=== PATIENT | female | born 1960 | race Caucasian/White ===

== ENCOUNTER 2021-02-04 16:46 | Emergency (ER) | payer OTHER ==
[~2021-02-04] VITALS: Ht 162.6 cm; Wt 121.6 kg
[~2021-02-04 16:46] MED LIST: ALBU90OI61 INH; ALLER-TEC D 5-1 EACH PO; ATOR80 PO; Aspir 8181 MG PO; DOXE10 PO; LISI5 PO; LOSA25 PO; NITR.4SL MM; OMEP40CA12 PO; PANT40 PO; TRAZ50 PO; lisinopril 10 mg tab
[2021-02-04 17:21] LABS: BASOPHILS ABSOLUTE AUTO 0.04 K/mm3 (0.00-0.23); BASOPHILS PERCENT AUTO 1 % (0-2); EOSINOPHILS ABSOLUTE AUTO 0.03 K/mm3 (0.00-0.68); EOSINOPHILS PERCENT AUTO 0 % (0-6); Hematocrit 41.6 % (33.0-51.0); IMMATURE GRAN ABSOLUTE AUTO 0.04 K/mm3 (0.00-0.10); IMMATURE GRAN PERCENT AUTO 1 % (0-1); LYMPHOCYTES ABSOLUTE AUTO 1.11 K/mm3 (0.84-5.20); LYMPHOCYTES PERCENT AUTO 13 % (21-46); MONOCYTES ABSOLUTE AUTO 0.62 K/mm3 (0.16-1.47); MONOCYTES PERCENT AUTO 7 % (4-13); Mean Corpuscular HGB 29.2 pg (26.0-34.0); Mean Corpuscular HGB Conc 33.7 g/dL (31.5-36.5); Mean Corpuscular Volume 87 fL (80-100); Mean Platelet Volume 9.9 fL (9.1-12.4); NEUTROPHILS ABSOLUTE AUTO 6.99 K/mm3 (1.96-9.15); NEUTROPHILS PERCENT AUTO 79 % (41-73); Platelet Count 179 K/mm3 (150-400); RDW Coefficient Variation 13.3 % (11.7-14.2); RDW Standard Deviation 42.5 fL (35.1-46.3); Red Blood Cell Count 4.79 M/mm3 (3.80-5.20); White Blood Cell Count 8.83 K/mm3 (4.00-11.30)
[2021-02-04 17:56] LABS: Anion Gap 4 mmol/L (6-16); Blood Urea Nitrogen 16 mg/dL (8-24); CO2, Blood 27 mmol/L (21-32); Chloride, Blood 106 mmol/L (98-108); Glucose, Blood 92 mg/dL (70-99); Potassium, Blood 4.4 mmol/L (3.5-5.5); Sodium, Blood 137 mmol/L (136-145)
[2021-02-04 17:57] LABS: Alanine Aminotransfer (ALT/SGP 34 U/L (12-78); Albumin/Globulin Ratio 1.1 (0.8-1.8); Alk Phos 108 U/L (50-136); Aspartate Aminotrans (AST/SGOT 33 U/L (12-37); Bilirubin, Total 0.6 mg/dL (0.1-1.0); Bun/Creatinine Ratio 22.8 (12.0-20.0); Calcium, Blood 9.3 mg/dL (8.5-10.1); Globulin, Blood 3.5 g/dL (2.2-4.0); Glomerular Filtration Rate >60 (60-); Total Protein, Blood 7.5 g/dL (6.4-8.2)
== END 2021-02-04 21:20 | disposition home or self-care (01) ==
LOC: ER 16:46
PROVIDERS: Physician Assistant
DX: R10.9 Unspecified abdominal pain (principal); I10 Essential (primary) hypertension; E78.5 Hyperlipidemia, unspecified; K21.9 Gastro-esophageal reflux disease without esophagitis; Z79.82 Long term (current) use of aspirin; Z79.899 Other long term (current) drug therapy; Z88.4 Allergy status to anesthetic agent; Z88.7 Allergy status to serum and vaccine; Z87.891 Personal history of nicotine dependence
CPT/HCPCS: 36415; 76705; 80053; 83690; 85025; 99284-25

== ENCOUNTER 2023-06-22 01:45 | Emergency (ER) | payer OTHER ==
[~2023-06-22] VITALS: Ht 162.6 cm; Wt 99.8 kg
[2023-06-22 02:20] LABS: BASOPHILS ABSOLUTE AUTO 0.04 K/mm3 (0.00-0.23); BASOPHILS PERCENT AUTO 1 % (0-2); EOSINOPHILS ABSOLUTE AUTO 0.09 K/mm3 (0.00-0.68); EOSINOPHILS PERCENT AUTO 1 % (0-6); Hematocrit 40.6 % (33.0-51.0); Hemoglobin 13.5 g/dL (11.5-16.0); IMMATURE GRAN ABSOLUTE AUTO 0.04 K/mm3 (0.00-0.10); IMMATURE GRAN PERCENT AUTO 1 % (0-1); LYMPHOCYTES PERCENT AUTO 17 % (21-46); MONOCYTES ABSOLUTE AUTO 0.67 K/mm3 (0.16-1.47); MONOCYTES PERCENT AUTO 8 % (4-13); Mean Corpuscular HGB 29.3 pg (26.0-34.0); Mean Corpuscular HGB Conc 33.3 g/dL (31.5-36.5); Mean Corpuscular Volume 88 fL (80-100); Mean Platelet Volume 10.2 fL (9.1-12.4); NEUTROPHILS ABSOLUTE AUTO 5.96 K/mm3 (1.96-9.15); NEUTROPHILS PERCENT AUTO 73 % (41-73); Platelet Count 163 K/mm3 (150-400); RDW Coefficient Variation 13.7 % (11.7-14.2); RDW Standard Deviation 43.8 fL (35.1-46.3)
[2023-06-22] MEDS ORDERED: NEBIVOLOL HCL5 MG PO (02:29)
[2023-06-22] MEDS ORDERED: AMLODIPINE BESYL5 MG PO (02:29)
[2023-06-22] MEDS ORDERED: LIPITOR80 MG PO (02:32)
[2023-06-22] MEDS ORDERED: PAXIL2010 PO (02:32)
[2023-06-22 02:49] LABS: Albumin, Blood 3.2 g/dL (3.4-5.0); Albumin/Globulin Ratio 0.9 (0.8-1.8); Bilirubin, Total 0.3 mg/dL (0.1-1.0); Bun/Creatinine Ratio 16.5 (12.0-20.0); Calcium, Blood 8.4 mg/dL (8.5-10.1); Creatinine, Blood 0.79 mg/dL (0.40-1.00); Globulin, Blood 3.4 g/dL (2.2-4.0); Potassium, Blood 4.3 mmol/L (3.5-5.5); Total Protein, Blood 6.6 g/dL (6.4-8.2)
[2023-06-22 03:07] LABS: Base Excess Venous 3.3 mmol/L; Bicarbonate Venous 26.4 mmol/L (24.0-30.0); PCO2 Venous 51.4 mmHg (38-42); pH Blood Venous 7.36 (7.34-7.37)
[2023-06-22] MEDS ORDERED: FURO20 PO (05:52)
[2023-06-22] MEDS ORDERED: ALBU90OI INH (05:52)
[2023-06-22] MEDS ORDERED: POTA10T PO (05:52)
[2023-06-22 06:28] VITALS: BP 151/98
== END 2023-06-22 06:28 | disposition home or self-care (01) ==
LOC: ER 01:45
PROVIDERS: Student in an Organized Health Care Education/Training Program
DX: I11.0 Hypertensive heart disease with heart failure (principal); I50.9 Heart failure, unspecified; E78.5 Hyperlipidemia, unspecified; K21.9 Gastro-esophageal reflux disease without esophagitis; Z88.7 Allergy status to serum and vaccine; Z88.5 Allergy status to narcotic agent; Z88.8 Allergy status to other drugs, medicaments and biological substances; Z79.82 Long term (current) use of aspirin; Z79.899 Other long term (current) drug therapy; Z87.891 Personal history of nicotine dependence
CPT/HCPCS: 71046; 80053; 82803; 83880; 84484; 85025; 85379; 93005; 93010; 94640; 94664; 96374; 99284-25; A9270; J1940

== ENCOUNTER 2024-02-22 07:40 | Observation (INO) | payer OTHER ==
[~2024-02-22] VITALS: Ht 162.6 cm; Wt 122.9 kg
[~2024-02-22 07:40] MED LIST changes: +ALBU90OI INH; +AMLODIPINE BESYL5 MG PO; +FURO20 PO; +LIPITOR80 MG PO; +NEBIVOLOL HCL5 MG PO; +PAXIL2010 PO; +POTA10T PO
[2024-02-22] MEDS ORDERED: Nitroglycerin 1 INCH/GM PKT TOP ONE (08:15)
[2024-02-22] MEDS ORDERED: Aspirin 325 MG Tab PO ONE (08:15)
[2024-02-22 09:14] LABS: BASOPHILS ABSOLUTE AUTO 0.05 K/mm3 (0.00-0.23); BASOPHILS PERCENT AUTO 1 % (0-2); EOSINOPHILS ABSOLUTE AUTO 0.03 K/mm3 (0.00-0.68); EOSINOPHILS PERCENT AUTO 0 % (0-6); Hematocrit 43.6 % (33.0-51.0); Hemoglobin 14.9 g/dL (11.5-16.0); IMMATURE GRAN ABSOLUTE AUTO 0.02 K/mm3 (0.00-0.10); IMMATURE GRAN PERCENT AUTO 0 % (0-1); LYMPHOCYTES ABSOLUTE AUTO 1.17 K/mm3 (0.84-5.20); LYMPHOCYTES PERCENT AUTO 17 % (21-46); MONOCYTES ABSOLUTE AUTO 0.59 K/mm3 (0.16-1.47); MONOCYTES PERCENT AUTO 8 % (4-13); Mean Corpuscular HGB 29.4 pg (26.0-34.0); Mean Corpuscular HGB Conc 34.2 g/dL (31.5-36.5); Mean Corpuscular Volume 86 fL (80-100); Mean Platelet Volume 10.4 fL (9.1-12.4); NEUTROPHILS ABSOLUTE AUTO 5.23 K/mm3 (1.96-9.15); NEUTROPHILS PERCENT AUTO 74 % (41-73); Platelet Count 169 K/mm3 (150-400); RDW Coefficient Variation 13.2 % (11.7-14.2); Red Blood Cell Count 5.06 M/mm3 (3.80-5.20); White Blood Cell Count 7.09 K/mm3 (4.00-11.30)
[2024-02-22 09:25] LABS: Albumin, Blood 3.8 g/dL (3.4-5.0); Albumin/Globulin Ratio 1.2 (0.8-1.8); Bilirubin, Total 0.5 mg/dL (0.1-1.0); Bun/Creatinine Ratio 14.6 (12.0-20.0); Calcium, Blood 9.1 mg/dL (8.5-10.1); Creatinine, Blood 0.89 mg/dL (0.40-1.00); Globulin, Blood 3.3 g/dL (2.2-4.0); Potassium, Blood 3.7 mmol/L (3.5-5.5); Total Protein, Blood 7.1 g/dL (6.4-8.2)
[2024-02-22] MEDS ORDERED: TRAZ50 PO (10:15)
[2024-02-22] MEDS ORDERED: VERA120 PO (10:16)
[2024-02-22] MEDS ORDERED: Ondansetron HCl 2 MG / ML 2ML Vial IV PRN (10:30)
[2024-02-22] MEDS ORDERED: Verapamil HCL 120 MG TABCR PO SCH (10:30)
[2024-02-22] MEDS ORDERED: Acetaminophen 325 MG TABLET PO PRN (10:30)
[2024-02-22] MEDS ORDERED: Carvedilol 3.125 MG Tab PO SCH (10:45)
[2024-02-22 11:00] VITALS: BP 134/81
[2024-02-22 13:08] VITALS: BP 147/87
[2024-02-22 15:51] VITALS: BP 137/77
--- NOTE | 2024-02-22 17:49 | NUR ---
"Spiritual Care Visit Attempted | Pt. Request Pt. is graceful but does not recall requesting spiritual care. Pt. verbalized gratitude for ths spiritual care visit but declined spiritual care."
--- NOTE | 2024-02-22 18:48 | NUR ---
ASSUMED CARE FROM ER. TRANSFERRED TO BED FROM ER [facility] WITHOUT DIFFICULTY. REPORTS RIGHT SIDE CP, SPOKE WITH DR. DING REGARDING IT. CARDIAC CONSULT ORDERED. DENIES SOB OR RADIATING PAIN. VSS, TO BE NPO AFTER MIDNIGHT TONIGHT FOR ANGIO TOMORROW. INDEPENDANT IN ROOM. PLEASANT AND COOPERATIVE WITH CARE, WILL CONTINUE TO MONITOR AND TREAT UNTIL CHANGE OF SHIFT.
--- NOTE | 2024-02-22 18:50 | NUR ---
HOLDING COREG UNTIL 8 HOURS FROM LAST DOSE PER PHARMACY.
[2024-02-22 19:57] VITALS: BP 166/75
[2024-02-22] MEDS ORDERED: Atorvastatin 40 MG Tab PO SCH (21:00)
[2024-02-22] MEDS ORDERED: TraZODone HCl 50 MG Tab PO SCH (21:00)
--- NOTE | 2024-02-22 22:06 | NUR ---
PT IS ALERT AND ORIENTED X 4, COOPERATIVE WITH CARE AND ABLE TO MAKE NEEDS KNOWN. SHE IS ON RA AND MAINTAINING 02 SATURATION ABOVE 95%, SOB W/EXERTION. HR 60'S-70'S & BP STABLE BUT ELEVATED, PT MEDICATED PER EMAR. PT HAS DENIED CP SINCE BEGINNING OF SHIFT. SHE IS COMPLAINING OF HEARTBURN, NOTIFIED, ORDERS PLACED, AND PT MEDICATED PER EMAR. PT IS CONTINENT OF BLADDER AND BOWELS, AMBULATES TO RESTROOM AND TOLERATES WELL. PT HAS ANGIO SCHEDULED FOR 02/23/24, NPO AT MIDNIGHT. PT RESTING IN BED AND WATCHING TV. CALL LIGHT WITHIN REACH.
[2024-02-22] MEDS ORDERED: Calcium Carbonate 500 MG Tab Chew PO PRN (22:20)
[2024-02-23 00:40] VITALS: BP 174/82
[2024-02-23 02:26] LABS: Hematocrit 40.7 % (33.0-51.0); Hemoglobin 13.9 g/dL (11.5-16.0); Mean Corpuscular HGB 29.8 pg (26.0-34.0); Mean Corpuscular HGB Conc 34.2 g/dL (31.5-36.5); Mean Corpuscular Volume 87 fL (80-100); Platelet Count 155 K/mm3 (150-400); RDW Coefficient Variation 13.3 % (11.7-14.2); RDW Standard Deviation 42.2 fL (35.1-46.3); Red Blood Cell Count 4.67 M/mm3 (3.80-5.20); White Blood Cell Count 6.09 K/mm3 (4.00-11.30)
[2024-02-23 03:03] LABS: Bun/Creatinine Ratio 12.9 (12.0-20.0); Calcium, Blood 10.2 mg/dL (8.5-10.1); Creatinine, Blood 0.85 mg/dL (0.40-1.00); Potassium, Blood 3.8 mmol/L (3.5-5.5)
--- NOTE | 2024-02-23 05:11 | NUR ---
NO ACUTE CHANGES, SEE PREVIOUS NOTE. PT HAS BEEN NPO SINCE MIDNIGHT. CALL LIGHT WITHIN REACH.
[2024-02-23 06:08] VITALS: BP 185/89
--- NOTE | 2024-02-23 06:24 | NUR ---
BP ELEVATED, MD NOTIFIED, ORDERS PLACED, PT MEDICATED PER ORDERS.
[2024-02-23] MEDS ORDERED: Losartan Potassium 25 MG Tab PO SCH (07:00)
[2024-02-23] MEDS ORDERED: NS 250 ML IV ONE (07:23)
[2024-02-23] MEDS ORDERED: NS 1,000 ML IV ONE ×2 (07:23→07:24)
[2024-02-23] MEDS ORDERED: Heparin Sodium 1000 Units/ML 10ML MDV ONE (07:23)
[2024-02-23] MEDS ORDERED: Verapamil HCL 2.5 MG/ML 2ML Injection ONE (07:23)
[2024-02-23] MEDS ORDERED: Nitroglycerin 2 MG/20 ML BTL ONE (07:24)
[2024-02-23] MEDS ORDERED: Midazolam HCl 1MG / ML 2ML Vial ONE (07:37)
[2024-02-23] MEDS ORDERED: FentaNYL Citrate 50 MCG/ML 2 ML Injection ONE (07:37)
[2024-02-23] MEDS ORDERED: PARoxetine HCl 20 MG Tab PO SCH (09:00)
[2024-02-23] MEDS ORDERED: Enoxaparin 40 MG/0.4 ML SYR SC SCH ×2 (09:00→21:00)
[2024-02-23] MEDS ORDERED: Aspirin 81 MG Chew PO SCH (09:00)
[2024-02-23 09:30] VITALS: BP 156/105
[2024-02-23 11:00] VITALS: BP 131/97
[2024-02-23] MEDS ORDERED: Omeprazole 20 MG CapCR PO ONE (11:40)
[2024-02-23 15:56] VITALS: BP 179/73
[2024-02-23] MEDS ORDERED: FURO20 PO (16:59)
[2024-02-23] MEDS ORDERED: ASPI325 PO (17:00)
[2024-02-23] MEDS ORDERED: CARV3.125 PO (17:01)
[2024-02-23] MEDS ORDERED: Calcium Carbon500 MG PO (17:01)
[2024-02-23] MEDS ORDERED: OMEP20ER PO (17:02)
[2024-02-23] MEDS ORDERED: LOSA25 PO (17:02)
--- NOTE | 2024-02-23 17:38 | NUR ---
SHIFT SUMMARY/DISCHARGE NOTES: ASSUMED CARE W PRIMARY RN AT 0700. PT A/Ox4. VSS, BP ELEVATED, MEDICATED PER EMAR. SINUS 80s ON TELE. RESP CLEAR ON AUSCULTATION. PT INDEPENDENT, ABLE TO MAKE NEEDS KNOWN. IV ON (L) AC, 20G, NO SWELLING, REDNESS, EDEMA. PT DENIES PN ON SITE. PT HAD ANGIOGRAM TODAY. NO ORDERS AT THIS TIME. PT HAS TR BAND ON R RADIAL, APPEARS C/D/I. NO SWELLING, REDNESS, PT DENIES PN ON SITE. NO ACUTE CHANGES, PT DENIES CHEST PN/PRESSURE. PT IS D/C TO HOME AT 1735 WITH ALL THEIR BELONGINGS. D/C TEACHINGS AND INSTRUCTIONS WERE REVIEWED AND PT HAD NO FURTHER QUESTIONS OR CONCERNS. 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 PT WAS AMBULATORY, GAIT STEADY, LEFT THE HOSPITAL IN THE CARE OF HER . NO FURTHER NEEDS IDENTIFIED.
[2024-02-24] MEDS ORDERED: Omeprazole 20 MG CapCR PO SCH (06:00)
== END 2024-02-23 17:35 | disposition home or self-care (01) ==
LOC: ER 07:40 → PCU 07:41 → ICUE 07:41 → PCU 11:28
PROVIDERS: Emergency Medicine; ADMIT Internal Medicine
DX: I25.118 Atherosclerotic heart disease of native coronary artery with other forms of angina pectoris (principal); E66.01 Morbid (severe) obesity due to excess calories; K21.9 Gastro-esophageal reflux disease without esophagitis; I10 Essential (primary) hypertension; E78.5 Hyperlipidemia, unspecified; I42.1 Obstructive hypertrophic cardiomyopathy; G47.30 Sleep apnea, unspecified; Z79.82 Long term (current) use of aspirin; Z79.899 Other long term (current) drug therapy; I27.20 Pulmonary hypertension, unspecified; Z87.891 Personal history of nicotine dependence
CPT/HCPCS: 36415; 71045; 76937; 80048; 80053; 84484; 85025; 85027; 93005; 93010; 93306; 93458; 96372; 99152; 99153; 99285-25; A9270; C1769; C1887; C1894; G0378; J1644; J1650; J2250; J3010; J7030; J7050; Q9967

== ENCOUNTER → 2024-06-13 | Outpatient (CLI) | payer OTHER ==
[~2024-06-13] MED LIST changes: +ASPI325 PO; +CARV3.125 PO; +Calcium Carbon500 MG PO; +OMEP20ER PO; +VERA120 PO
[2024-06-13 11:32] LABS: BASOPHILS ABSOLUTE AUTO 0.03 K/mm3 (0.00-0.23); BASOPHILS PERCENT AUTO 0 % (0-2); EOSINOPHILS ABSOLUTE AUTO 0.06 K/mm3 (0.00-0.68); EOSINOPHILS PERCENT AUTO 1 % (0-6); Hemoglobin 13.4 g/dL (11.5-16.0); IMMATURE GRAN ABSOLUTE AUTO 0.02 K/mm3 (0.00-0.10); IMMATURE GRAN PERCENT AUTO 0 % (0-1); LYMPHOCYTES ABSOLUTE AUTO 0.83 K/mm3 (0.84-5.20); LYMPHOCYTES PERCENT AUTO 12 % (21-46); MONOCYTES ABSOLUTE AUTO 0.48 K/mm3 (0.16-1.47); MONOCYTES PERCENT AUTO 7 % (4-13); Mean Corpuscular HGB 28.3 pg (26.0-34.0); Mean Corpuscular HGB Conc 31.9 g/dL (31.5-36.5); Mean Corpuscular Volume 89 fL (80-100); Mean Platelet Volume 9.9 fL (9.1-12.4); NEUTROPHILS ABSOLUTE AUTO 5.45 K/mm3 (1.96-9.15); NEUTROPHILS PERCENT AUTO 79 % (41-73); Platelet Count 152 K/mm3 (150-400); RDW Coefficient Variation 13.6 % (11.7-14.2); RDW Standard Deviation 43.9 fL (35.1-46.3); Red Blood Cell Count 4.74 M/mm3 (3.80-5.20); White Blood Cell Count 6.87 K/mm3 (4.00-11.30)
[2024-06-13 11:46] LABS: Albumin, Blood 3.5 g/dL (3.4-5.0); Albumin/Globulin Ratio 0.9 (0.8-1.8); Bilirubin, Total 0.4 mg/dL (0.1-1.0); Bun/Creatinine Ratio 16.8 (12.0-20.0); Calcium, Blood 9.1 mg/dL (8.5-10.1); Creatinine, Blood 0.95 mg/dL (0.40-1.00); Globulin, Blood 3.7 g/dL (2.2-4.0); Potassium, Blood 4.5 mmol/L (3.5-5.5); Total Protein, Blood 7.2 g/dL (6.4-8.2)
== END ==
LOC: LAB SHORT 11:27 → LAB 11:27
PROVIDERS: Physician Assistant
DX: R10.9 Unspecified abdominal pain (principal)
CPT/HCPCS: 80053; 83690; 85025

== ENCOUNTER 2025-01-09 09:19 | Inpatient (IN) | payer OTHER ==
[~2025-01-09] VITALS: Ht 162.6 cm; Wt 129.9 kg
[2025-01-09] MEDS ORDERED: Albuterol 2.5 MG/3 ML VIAL INH ONE (09:40)
[2025-01-09] MEDS ORDERED: CefTRIAXone Sodium 2,000 MG in NS 100 ML IV ONE (10:05)
[2025-01-09] MEDS ORDERED: Azithromycin 500 MG in NS 250 ML IV ONE (10:05)
[2025-01-09] MEDS ORDERED: Aspirin 325 MG Tab PO ONE (10:05)
[2025-01-09 11:08] LABS: Anti-Xa UFH, PHA Monitoring <0.10 IU/mL; International Normalized Ratio 1.08; Prothrombin Time Results 11.5 Sec (9.7-11.5)
[2025-01-09] MEDS ORDERED: Heparin Sodium,Porcine/0.5 NS 500 ML IV SCH (11:30)
[2025-01-09] MEDS ORDERED: Carvedilol 3.125 MG Tab PO SCH (12:00)
[2025-01-09] MEDS ORDERED: Aspirin 325 MG Tab PO SCH (12:00)
[2025-01-09] MEDS ORDERED: Atorvastatin 40 MG Tab PO SCH (12:00)
[2025-01-09] MEDS ORDERED: Clopidogrel Bisulfate 75 MG Tab PO SCH (13:00)
[2025-01-09] MEDS ORDERED: Furosemide 10 MG/ML 4ML Vial IV SCH (13:00)
[2025-01-09] MEDS ORDERED: Verapamil HCL 120 MG TABCR PO SCH (13:00)
[2025-01-09] MEDS ORDERED: Losartan Potassium 25 MG Tab PO SCH (13:00)
[2025-01-09 14:14] LABS: Influenza A, PCR NEGATIVE (NEGATIVE); Influenza B, PCR NEGATIVE (NEGATIVE); Resp Syncytial Virus, PCR NEGATIVE (NEGATIVE); SARS-Cov-2 (COVID-19) PCR, MMC NEGATIVE (NEGATIVE)
[2025-01-09 14:46] LABS: Base Excess Venous 12.2 mmol/L; Bicarbonate Venous 33.3 mmol/L (24.0-30.0); pH Blood Venous 7.38 (7.34-7.37)
[2025-01-09 14:47] LABS: PCO2 Venous 62.7 mmHg (38-42)
[2025-01-09 15:04] VITALS: BP 148/88
--- NOTE | 2025-01-09 15:52 | NUR ---
ARRIVAL TO UNIT REPORT RECIEVED FROM ED NURSE AT 1438. PT ARRIVED TO PCU AT 1500 VIA GURNEY AND ON 2L NC. PT ABLE TO TRNAFER FROM GURNEY TO PCU ON HER OWN, TOLERATED WELL. LUNGS COARSE. PT DENIES SOB AT TIME OF ARRIVAL. PT ORIENTED TO ROOM AND ABLE TO ANSWER HEALTH HISTORY APPROPIATELY. HEP GTT RUNNING PER ORDER. PT DENIES CHEST PAIN/PRESSURE AT THIS TIME.
[2025-01-09 16:00] VITALS: BP 119/71
[2025-01-09] MEDS ORDERED: GuaiFENesin 600 MG TabCR PO SCH (17:00)
[2025-01-09] MEDS ORDERED: Ampicillin Sod/Sulbactam Sod 1.5 GM in NS 100 ML IV SCH (18:00)
[2025-01-09] MEDS ORDERED: Ampicillin Sod/Sulbactam Sod 3 GM in NS 100 ML IV SCH (18:00)
--- NOTE | 2025-01-09 18:30 | NUR ---
SHIFT SUMMARY PT A/OX 4 AND COOPERATIVE OF CARE. PT ABLE TO EXPRESS NEEDS AND CALLS APPROPIATE. PT ON 2L NC WITH SATS IN THE 90'S, NO REPORT OF SOB SINCE ARRIVING TO PCU. PT VSS SINCE ARRIVING TO UNIT. PT WITH HEP GTT RUNNING PER ORDER. PT SBA ASSIST WHILE UP IN ROOM, TOLERATES WELL.
[2025-01-09 19:21] VITALS: BP 99/66
[2025-01-09] MEDS ORDERED: Lactobacil 2-S.Thermo-Bifido 1 1 Cap PO SCH (21:00)
[2025-01-09 23:36] VITALS: BP 126/70
[2025-01-09] MEDS ORDERED: Acetaminophen 325 MG TABLET PO PRN (23:45)
[2025-01-10 00:17] LABS: BASOPHILS ABSOLUTE AUTO 0.04 K/mm3 (0.00-0.23); BASOPHILS PERCENT AUTO 0 % (0-2); EOSINOPHILS ABSOLUTE AUTO 0.02 K/mm3 (0.00-0.68); EOSINOPHILS PERCENT AUTO 0 % (0-6); Hematocrit 41.4 % (33.0-51.0); Hemoglobin 12.9 g/dL (11.5-16.0); IMMATURE GRAN ABSOLUTE AUTO 0.02 K/mm3 (0.00-0.10); IMMATURE GRAN PERCENT AUTO 0 % (0-1); LYMPHOCYTES ABSOLUTE AUTO 0.85 K/mm3 (0.84-5.20); LYMPHOCYTES PERCENT AUTO 9 % (21-46); MONOCYTES ABSOLUTE AUTO 1.62 K/mm3 (0.16-1.47); MONOCYTES PERCENT AUTO 18 % (4-13); Mean Corpuscular HGB 28.7 pg (26.0-34.0); Mean Corpuscular HGB Conc 31.2 g/dL (31.5-36.5); Mean Corpuscular Volume 92 fL (80-100); Mean Platelet Volume 10.1 fL (9.1-12.4); NEUTROPHILS PERCENT AUTO 73 % (41-73); NRBC ABSOLUTE 0.03 K/mm3 (0.00-0.02); NRBC Auto 0.3 /100 WBC (0.0-0.2); Platelet Count 194 K/mm3 (150-400); RDW Coefficient Variation 13.7 % (11.7-14.2); RDW Standard Deviation 46.5 fL (35.1-46.3); Red Blood Cell Count 4.49 M/mm3 (3.80-5.20); White Blood Cell Count 9.25 K/mm3 (4.00-11.30)
[2025-01-10 00:38] LABS: Albumin, Blood 2.6 g/dL (3.4-5.0); Albumin/Globulin Ratio 0.6 (0.8-1.8); Bilirubin, Total 0.4 mg/dL (0.1-1.0); Bun/Creatinine Ratio 23.2 (12.0-20.0); Calcium, Blood 9.3 mg/dL (8.5-10.1); Creatinine, Blood 0.99 mg/dL (0.40-1.00); Globulin, Blood 4.1 g/dL (2.2-4.0); Potassium, Blood 4.1 mmol/L (3.5-5.5); Total Protein, Blood 6.7 g/dL (6.4-8.2)
[2025-01-10] MEDS ORDERED: Dose Adjust by Pharmacy XX STA (00:49)
[2025-01-10 03:54] VITALS: BP 147/86
--- NOTE | 2025-01-10 05:44 | NUR ---
NOC SUMMARY- PT STILL REQUIRES O2. PT IS A MOUTH BREATHER WHEN SLEEPING, A OXYMASK WAS PLACED ON PT. PT HAS PERIODS OF APNEA WHILE SLEEPING. PT DENIES HX OF USING CPAP OR SLEEP STUDY. PT CONTINUES TO COUGH UP BROWN THICK SPUTUM. PT HAS HAD HARD TIME SLEEPING DUE TO APNEA WAKING HER UP FREQUENTLY. PT HAS BEEN VOIDING AND TOLERATING PO. PT CURRENTLY RESTING AND IN NO DISTRESS. CALL LIGHT IN REACH.
[2025-01-10] MEDS ORDERED: Omeprazole 20 MG CapCR PO SCH (06:00)
[2025-01-10 07:43] VITALS: BP 116/87
[2025-01-10 08:38] LABS: Base Excess Venous 9.6 mmol/L; Bicarbonate Venous 30.9 mmol/L (24.0-30.0); PCO2 Venous 60.6 mmHg (38-42); pH Blood Venous 7.37 (7.34-7.37)
[2025-01-10] MEDS ORDERED: PARoxetine HCl 20 MG Tab PO SCH (09:00)
[2025-01-10 12:00] VITALS: BP 149/74
[2025-01-10 14:37] LABS: PCO2 Arterial > 105 mmHg (35-45); PO2 Arterial 72.4 mmHg (80-100)
[2025-01-10 14:38] LABS: pH Blood Arterial 7.17 (7.35-7.45)
[2025-01-10] MEDS ORDERED: LORazepam 2 MG/ML 1ML Injection IV PRN (14:45)
--- NOTE | 2025-01-10 14:46 | NUR ---
UPDATE THIS RN RETURNED TO FLOOR FROM BREAK. BREAK NURSE STATED THAT PT WAS WAS "UNRESPONSIVE" SHE WAS CALLING DOCTOR. THIS RN TO PT ROOM. MOBILE SALES TECHNICIAN PRESENT ATTEMPTING TO WAKE PT BY STERNAL RUBS AND PAIN STIMULI. PT ONLY WINCING FROM PAIN BUT NOT WAKING. THIS RN CALLED OUT PT'S NAME IN LOUD VOICE, PT WOKE UP STARTLED. PT OBTUNDED AND UNABLE TO STAY AWAKE OR ANSWER ORIENTATION QUESTIONS. WHEN ASKED IF SHE KNEW WHERE SHE WAS PT STATED "[facility]." WHEN ASKED IF PT COULD TELL US HER FULL NAME PT RESPONDED "YEAH, [facility]." MD TO PT'S ROOM AND ATTEMPTED TO ASK ORIENTATION QUESTIONS, PT UNABLE TO ANSWER FROM [place] OBTUNDED. STAT ABG ORDERED. RT OBTAINED ABG AND NOTIFIED MOBILE SALES TECHNICIAN WITH MD PRESENT OF PH OF 7.17 AND PCO2 >105. BIPAP ORDERED. BIPAP APPLIED BY RT WITH SETTINGS OF 18/10 30%. PT CURRENTLY TOLERATING BIPAP AND RESTING IN BED. CALL LIGHT IN REACH.
[2025-01-10 16:40] VITALS: BP 116/72
--- NOTE | 2025-01-10 17:32 | NUR ---
SHIFT SUMMARY PT A/OX3-4 AT BEGINNING OF SHIFT, SOME LETHARGY DUE TO LACK OF SLEEP PER PT REPORT. PT SLEPT THE FIRST HALF OF THE SHIFT WHILE ON 5L SIMPLE O2 MASK. AROUND 1400, PT WAS DIFFICULT TO ROUSE, SEE PREVIOUS NOTES. PT CURRENTLY ON BIPAP 22/10 30%. PT CO2 CRITICALLY HIGH ON ABG. PT'S SATS HAVE READ STABLE WHEN PT WEARS O2 MASK, DESATS TO LOW 80'S WHEN MASK WAS PULLED OFF BY PT WHILE SLEEPING. SATS IN THE 90'S SINCE BEING ON BIPAP. OTHER VSS THROUGOUT SHIFT. P[T DENIED CHEST PAIN/PRESSURE. PT EXPRESSED SOB ALL SHIFT AND HAS A HACKING COUGH. UPDATED ON OBTUNDED STATE AND NEED FOR BIPAP AT THIS TIME.
[2025-01-10 19:24] VITALS: BP 147/98
[2025-01-10 23:55] VITALS: BP 121/71
[2025-01-11 03:55] LABS: Bicarbonate Venous 34.2 mmol/L (24.0-30.0); PCO2 Venous 63.7 mmHg (38-42); pH Blood Venous 7.39 (7.34-7.37)
[2025-01-11 03:56] LABS: Base Excess Venous 13.3 mmol/L
[2025-01-11 04:04] LABS: BASOPHILS ABSOLUTE AUTO 0.02 K/mm3 (0.00-0.23); BASOPHILS PERCENT AUTO 0 % (0-2); EOSINOPHILS ABSOLUTE AUTO 0.03 K/mm3 (0.00-0.68); EOSINOPHILS PERCENT AUTO 0 % (0-6); Hematocrit 39.6 % (33.0-51.0); Hemoglobin 12.7 g/dL (11.5-16.0); IMMATURE GRAN ABSOLUTE AUTO 0.06 K/mm3 (0.00-0.10); IMMATURE GRAN PERCENT AUTO 1 % (0-1); LYMPHOCYTES ABSOLUTE AUTO 0.83 K/mm3 (0.84-5.20); LYMPHOCYTES PERCENT AUTO 8 % (21-46); MONOCYTES ABSOLUTE AUTO 1.41 K/mm3 (0.16-1.47); MONOCYTES PERCENT AUTO 14 % (4-13); Mean Corpuscular HGB 29.3 pg (26.0-34.0); Mean Corpuscular HGB Conc 32.1 g/dL (31.5-36.5); Mean Corpuscular Volume 92 fL (80-100); NEUTROPHILS ABSOLUTE AUTO 8.12 K/mm3 (1.96-9.15); NEUTROPHILS PERCENT AUTO 78 % (41-73); Platelet Count 198 K/mm3 (150-400); RDW Coefficient Variation 13.6 % (11.7-14.2); RDW Standard Deviation 45.1 fL (35.1-46.3); Red Blood Cell Count 4.33 M/mm3 (3.80-5.20); White Blood Cell Count 10.47 K/mm3 (4.00-11.30)
[2025-01-11 04:22] VITALS: BP 148/105
[2025-01-11 04:23] LABS: Albumin, Blood 2.8 g/dL (3.4-5.0); Albumin/Globulin Ratio 0.7 (0.8-1.8); Bilirubin, Total 0.4 mg/dL (0.1-1.0); Bun/Creatinine Ratio 31.9 (12.0-20.0); Calcium, Blood 9.9 mg/dL (8.5-10.1); Creatinine, Blood 0.78 mg/dL (0.40-1.00); Potassium, Blood 3.9 mmol/L (3.5-5.5); Total Protein, Blood 6.8 g/dL (6.4-8.2)
--- NOTE | 2025-01-11 05:18 | NUR ---
SHIFT SUMMARY PT A/OX4 T/O SHIFT. OBEYS COMMANDS, VERBALIZES NEEDS, COOPERATIVE WITH CARE. PT DENIES PAIN. IN A SINUS RHYTHM WITH NOTED ST DEPRESSION. VSS. PT DENIES CHEST PAIN/PRESSURE. PT ON BIPAP 22/10 30% FOR MAJORITY OF SHIFT AND ALWAYS WHILE ASLEEP. ON 2-3L NC AT TIMES AND TOLERATING WELL, SATS ABOVE 90%. 1P ASSIST TO BEDSIDE COMMODE, BUT HAVING INTERMITTENT EPISODES OF STOOL INCONTINENCE DUE TO COUGHING. NO ACUTE EVENTS OVERNIGHT.
[2025-01-11 07:24] VITALS: BP 140/66
[2025-01-11 08:51] VITALS: BP 122/80
[2025-01-11] MEDS ORDERED: Torsemide 20 MG TAB PO SCH (09:00)
[2025-01-11 12:11] VITALS: BP 124/92
[2025-01-11] MEDS ORDERED: Furosemide 10 MG/ML 4ML Vial IV SCH (15:00)
[2025-01-11] MEDS ORDERED: Empagliflozin 10 MG TAB PO SCH (15:00)
[2025-01-11] MEDS ORDERED: Enoxaparin 40 MG/0.4 ML SYR SC SCH (15:00)
--- NOTE | 2025-01-11 19:28 | NUR ---
Shift Summmary Pt alert, oriented x4; calm and cooperative with care. Pt up in chair for majority of shift. Pt reports headache, medicated per emar. Pt denies chest pain/pressure, sob, nausea, dizziness and numb/tingling. Tele sinus 60-80's, bp stable. Edema noted to ble. Spo2 >90% on 2l o2 via nc, while awake, attempted to titrate down but desaturated, placed on bipap this afternoon for approx 2 hours, taken off around 1615. Abd soft, nontender, +bt t/o. Plans for VBG this evening and addition in am. Other vss. No other acute changes noted. Report given to oncoming RN.
[2025-01-11 19:45] VITALS: BP 130/76
[2025-01-11 20:14] LABS: Base Excess Venous 17.5 mmol/L; Bicarbonate Venous 38.3 mmol/L (24.0-30.0); PCO2 Venous 63.3 mmHg (38-42); pH Blood Venous 7.43 (7.34-7.37)
[2025-01-12] VITALS (7 sets, daily range): BP systolic 132–171; BP diastolic 65–101
[2025-01-12 03:39] LABS: Base Excess Venous 17.8 mmol/L; PCO2 Venous 64.6 mmHg (38-42); pH Blood Venous 7.42 (7.34-7.37)
[2025-01-12 04:16] LABS: BASOPHILS ABSOLUTE AUTO 0.03 K/mm3 (0.00-0.23); BASOPHILS PERCENT AUTO 0 % (0-2); EOSINOPHILS ABSOLUTE AUTO 0.06 K/mm3 (0.00-0.68); EOSINOPHILS PERCENT AUTO 1 % (0-6); Hematocrit 40.4 % (33.0-51.0); Hemoglobin 12.9 g/dL (11.5-16.0); IMMATURE GRAN ABSOLUTE AUTO 0.08 K/mm3 (0.00-0.10); IMMATURE GRAN PERCENT AUTO 1 % (0-1); LYMPHOCYTES ABSOLUTE AUTO 0.67 K/mm3 (0.84-5.20); LYMPHOCYTES PERCENT AUTO 7 % (21-46); MONOCYTES ABSOLUTE AUTO 1.15 K/mm3 (0.16-1.47); MONOCYTES PERCENT AUTO 11 % (4-13); Mean Corpuscular HGB Conc 31.9 g/dL (31.5-36.5); Mean Corpuscular Volume 91 fL (80-100); NEUTROPHILS ABSOLUTE AUTO 8.12 K/mm3 (1.96-9.15); NEUTROPHILS PERCENT AUTO 80 % (41-73); Platelet Count 201 K/mm3 (150-400); RDW Coefficient Variation 13.5 % (11.7-14.2); RDW Standard Deviation 45.1 fL (35.1-46.3); Red Blood Cell Count 4.45 M/mm3 (3.80-5.20); White Blood Cell Count 10.11 K/mm3 (4.00-11.30)
[2025-01-12 04:31] LABS: Bun/Creatinine Ratio 24.7 (12.0-20.0); Calcium, Blood 9.8 mg/dL (8.5-10.1); Creatinine, Blood 0.73 mg/dL (0.40-1.00); Potassium, Blood 3.4 mmol/L (3.5-5.5)
--- NOTE | 2025-01-12 05:38 | NUR ---
SHIFT SUMMARY PT A/OX4, OBEYS COMMANDS, VERBALIZES NEEDS, COOPERATES WITH CARE. PT DENIES PAIN T/O SHIFT. ON 2L NC WHEN AWAKE, ON BIPAP (22/10 30%) WHILE SLEEPING. SATS ABOVE 90%. NSR, VSS, PT DENIES CHEST PAIN/PRESSURE T/O SHIFT. PT BEING ASSESSED FOR NECESSITY OF HOME CPAP.
[2025-01-12] MEDS ORDERED: Potassium Chloride 10 Meq Tablet SA PO ONE (08:45)
--- NOTE | 2025-01-12 09:36 | NUR ---
ASSUMPTION OF CARE: PATIENT IS ALERT AND ORIENTED X 4, ABLE TO MAKE NEEDS KNOWN, NO RESPIRATORY DISTRESS NOTED ABLE TO TITRATE DOWN TO 1L VIA NC SPO2 >94%. PATIENT DENIES CHEST PAIN PRESSURE OR SOB. ABLE TO VOID BSC, USING WALKER 1 ASSIST, BM THIS AM. TOLERATING MEALS. SPUTUM SAMPLE SENT FOR CULTURE. UP IN THE RECLINER, MILD HYPERTENSIVE PRIOR TO AM MEDS. PLAN OF CARE CONTNIUES, NO ACUTE CONCERNS
--- NOTE | 2025-01-12 12:33 | NUR ---
POLST: PATIENT NOW HAS A COMPLETED POLST FAXED TO REGISTRY, ORIGINAL WITH PATIENT AND COPY IN CHART. DNR, SELECTIVE TREATMENT. PLAN OF CARE CONTNINUES, BLOOD PRESSURE CONTINUES TO IMPROVE FROM THIS AM NO ACUTE CONCERNS AT THIS TIME.
--- NOTE | 2025-01-12 15:16 | NUR ---
REVIEWED AND ASSISTED BEDSIDE NURSE COMPLETE A POLST FOR PATIENT
--- NOTE | 2025-01-12 16:45 | NUR ---
EOS: NO ACUTE CHANGES PLEASE SEE ASSUMPTION. DENIES CHEST PAIN PRESSURE OR SOB AT REST. 1L VIA NC FOR SPO2 >92-95%. PATIENT OVERALL IMPROVED THROUGH THE DAY. PLAN OF CARE CONTINUES. DID NOT REQUIRE BIPAP THIS SHIFT.
[2025-01-13] VITALS (7 sets, daily range): BP systolic 127–153; BP diastolic 74–113
[2025-01-13 03:47] LABS: BASOPHILS ABSOLUTE AUTO 0.05 K/mm3 (0.00-0.23); BASOPHILS PERCENT AUTO 1 % (0-2); EOSINOPHILS ABSOLUTE AUTO 0.07 K/mm3 (0.00-0.68); EOSINOPHILS PERCENT AUTO 1 % (0-6); Hematocrit 41.3 % (33.0-51.0); Hemoglobin 13.3 g/dL (11.5-16.0); IMMATURE GRAN ABSOLUTE AUTO 0.08 K/mm3 (0.00-0.10); IMMATURE GRAN PERCENT AUTO 1 % (0-1); LYMPHOCYTES ABSOLUTE AUTO 0.78 K/mm3 (0.84-5.20); LYMPHOCYTES PERCENT AUTO 8 % (21-46); MONOCYTES ABSOLUTE AUTO 1.14 K/mm3 (0.16-1.47); MONOCYTES PERCENT AUTO 12 % (4-13); Mean Corpuscular HGB 28.7 pg (26.0-34.0); Mean Corpuscular HGB Conc 32.2 g/dL (31.5-36.5); Mean Corpuscular Volume 89 fL (80-100); Mean Platelet Volume 9.6 fL (9.1-12.4); NEUTROPHILS ABSOLUTE AUTO 7.77 K/mm3 (1.96-9.15); NEUTROPHILS PERCENT AUTO 79 % (41-73); Platelet Count 200 K/mm3 (150-400); RDW Coefficient Variation 13.5 % (11.7-14.2); RDW Standard Deviation 44.1 fL (35.1-46.3); Red Blood Cell Count 4.63 M/mm3 (3.80-5.20); White Blood Cell Count 9.89 K/mm3 (4.00-11.30)
[2025-01-13 04:05] LABS: Bun/Creatinine Ratio 22.2 (12.0-20.0); Calcium, Blood 9.5 mg/dL (8.5-10.1); Creatinine, Blood 0.72 mg/dL (0.40-1.00); Potassium, Blood 3.4 mmol/L (3.5-5.5)
--- NOTE | 2025-01-13 05:59 | NUR ---
SHIFT SUMMARY PATIENT SLEPT THROUGH NIGHT ONLY WAKING TO USE BATHROOM. PATIENT IS A&O X4. SBP 130'S AND HR IN THE 70'S. PATIENT IS ON 1L OF O2 VIA NC SATTING 96%. PATIENT HAS A LEFT PERIPHERAL AC IV. PATIENT WILL CALL OF HELP TO BATHROOM ALSO IS WHERE ATTENDS DUE TO COUGH AND LEAKAGE. CALL LIGHT WITHIN REACH.
[2025-01-13] MEDS ORDERED: Furosemide 10 MG/ML 4ML Vial IV ONE (09:00)
[2025-01-13] MEDS ORDERED: Potassium Chloride 10 Meq Tablet SA PO ONE (09:00)
--- NOTE | 2025-01-13 09:11 | NUR ---
ASSUMPTINO OF CARE: PATIENT CONTINUES TO IMPROVE THROUGH THE NIGHT, NO ACUTE CONCERNS, LUNG SOUNDS IMPROVED FROM PREVIOUS SHFIT. 1L VIA NC. DENIES CHEST PAIN PRESSURE OR SOB AT REST. PATIENT SPO2 DOES DROP AT REST TO <88 ON RA. RECOVERING FASTER EACH DAY. NO ACUTE CONCERNS, REMAINS ALERT AND ORIENTED X 4
--- NOTE | 2025-01-13 15:05 | NUR ---
TRANSFER TO MEDICAL 337: PATIENT IS ALERT AND ORIENTED X 4 AT BEDSIDE AWARE OF TRANSFER, WAS WEARING BIPAP WHILE SLEPING AND 1L WHILE AWKAE DIURESING WELL WITH INCREASED LASIX FROM DR. ABREU, NEW IV PLACED TO RFA LA POTENTIALLY IS LEAKING BUT ULTRA SOUND CONFIRMED FLUSHING TO THE SHOULDER, INFORMED MED RN. DENIES CHEST PAIN PRESSURE OR SOB AT REST. IMPROVED STRENGTH IN LEGS, 1P SBA FOR LINE MANAGEMENT TO BATHROOM OR BSC, DEPENDING ON WHEN SHE GOT LASIX, PATIENT HAS BEEN COOPERATIVE PLEASANT, WITH NO ACUTE CONCERNS FROM THIS RN OR PATIENT. PLAN OF CARE CONTINUES.
--- NOTE | 2025-01-13 17:18 | NUR ---
SHIFT SUMMARY PT ARRIVED TO FLOOR APPROX 1315. AOX4, COOPERATIVE, ABLE TO MAKE NEEDS KNOWN. WAS ON 1LO2, INCREASED TO 2 LO2 TO KEEP OXYGEN SAT ABOVE 90%, WILL TITRATE NEEDED FOR BASELINE BEING RA. PT SBA TO BATHROOM TO VOID RECEIVED REPORT FROM CARMELA OF PCU SAYING CRACKLES IN ALL LOBES OF LUNGS. ON ASCULTATION, NO CRACKLES WERE HEARD. PT IS PLEASANTLY SITTING IN RECLINER. BED IN LOWEST POSITION, CALL LIGHT WITHIN REACH.
[2025-01-13] MEDS ORDERED: NS 250 ML IV PRN (17:30)
[2025-01-13 17:53] LABS: Albumin, Blood 2.8 g/dL (3.4-5.0); Anion Gap 7 mmol/L (3-11); Blood Urea Nitrogen 15 mg/dL (8-24); Bun/Creatinine Ratio 18.5 (12.0-20.0); CO2, Blood 41 mmol/L (21-32); Calcium, Blood 9.6 mg/dL (8.5-10.1); Chloride, Blood 91 mmol/L (98-108); Creatinine, Blood 0.81 mg/dL (0.40-1.00); Glomerular Filtration Rate 81 (60-); Glucose, Blood 100 mg/dL (70-99); Phosphorus, Blood 3.2 mg/dL (2.5-4.9); Potassium, Blood 3.4 mmol/L (3.5-5.5); Sodium, Blood 136 mmol/L (136-145)
[2025-01-14 00:19] VITALS: BP 152/94
[2025-01-14 03:33] VITALS: BP 147/77
[2025-01-14 06:19] LABS: BASOPHILS ABSOLUTE AUTO 0.04 K/mm3 (0.00-0.23); BASOPHILS PERCENT AUTO 0 % (0-2); EOSINOPHILS ABSOLUTE AUTO 0.11 K/mm3 (0.00-0.68); EOSINOPHILS PERCENT AUTO 1 % (0-6); Hematocrit 40.3 % (33.0-51.0); Hemoglobin 13.1 g/dL (11.5-16.0); IMMATURE GRAN ABSOLUTE AUTO 0.08 K/mm3 (0.00-0.10); IMMATURE GRAN PERCENT AUTO 1 % (0-1); LYMPHOCYTES ABSOLUTE AUTO 1.12 K/mm3 (0.84-5.20); LYMPHOCYTES PERCENT AUTO 12 % (21-46); MONOCYTES ABSOLUTE AUTO 1.08 K/mm3 (0.16-1.47); MONOCYTES PERCENT AUTO 11 % (4-13); Mean Corpuscular HGB 28.7 pg (26.0-34.0); Mean Corpuscular HGB Conc 32.5 g/dL (31.5-36.5); Mean Corpuscular Volume 88 fL (80-100); Mean Platelet Volume 9.4 fL (9.1-12.4); NEUTROPHILS ABSOLUTE AUTO 7.28 K/mm3 (1.96-9.15); NEUTROPHILS PERCENT AUTO 75 % (41-73); Platelet Count 197 K/mm3 (150-400); RDW Coefficient Variation 13.4 % (11.7-14.2); RDW Standard Deviation 43.3 fL (35.1-46.3); Red Blood Cell Count 4.57 M/mm3 (3.80-5.20); White Blood Cell Count 9.71 K/mm3 (4.00-11.30)
[2025-01-14 06:42] LABS: Bun/Creatinine Ratio 18.7 (12.0-20.0); Calcium, Blood 9.3 mg/dL (8.5-10.1); Creatinine, Blood 0.75 mg/dL (0.40-1.00)
[2025-01-14] MEDS ORDERED: Potassium Chloride 20 MEQ TabCR PO ONE (08:10)
[2025-01-14 08:14] VITALS: BP 150/90
[2025-01-14 16:57] VITALS: BP 131/79
--- NOTE | 2025-01-14 17:55 | NUR ---
SHIFT SUMMARY PT AOX4, COOPERATIVE, ABLE TO MAKE NEEDS KNOWN. SBA TO BATHROOM FOR VOIDING. ON OXYGEN CURRENLTY AND USES CPAP AT NIGHT. NO COMPLAINTS OF PAIN FOR SHIFT. BED IN LOWEST POSITION, CALL LIGHT WITHIN REACH.
[2025-01-14 20:07] VITALS: BP 146/68
[2025-01-15 00:10] VITALS: BP 166/82
[2025-01-15 06:25] VITALS: BP 147/94
[2025-01-15 06:38] LABS: BASOPHILS ABSOLUTE AUTO 0.05 K/mm3 (0.00-0.23); BASOPHILS PERCENT AUTO 1 % (0-2); EOSINOPHILS ABSOLUTE AUTO 0.11 K/mm3 (0.00-0.68); EOSINOPHILS PERCENT AUTO 1 % (0-6); Hematocrit 39.3 % (33.0-51.0); Hemoglobin 12.6 g/dL (11.5-16.0); IMMATURE GRAN ABSOLUTE AUTO 0.11 K/mm3 (0.00-0.10); IMMATURE GRAN PERCENT AUTO 1 % (0-1); LYMPHOCYTES ABSOLUTE AUTO 1.11 K/mm3 (0.84-5.20); LYMPHOCYTES PERCENT AUTO 11 % (21-46); MONOCYTES ABSOLUTE AUTO 1.12 K/mm3 (0.16-1.47); MONOCYTES PERCENT AUTO 11 % (4-13); Mean Corpuscular HGB 28.6 pg (26.0-34.0); Mean Corpuscular HGB Conc 32.1 g/dL (31.5-36.5); Mean Corpuscular Volume 89 fL (80-100); Mean Platelet Volume 9.4 fL (9.1-12.4); NEUTROPHILS ABSOLUTE AUTO 7.38 K/mm3 (1.96-9.15); NEUTROPHILS PERCENT AUTO 75 % (41-73); Platelet Count 184 K/mm3 (150-400); RDW Coefficient Variation 13.2 % (11.7-14.2); RDW Standard Deviation 43.5 fL (35.1-46.3); White Blood Cell Count 9.88 K/mm3 (4.00-11.30)
[2025-01-15 06:56] LABS: Bun/Creatinine Ratio 17.4 (12.0-20.0); Calcium, Blood 9.2 mg/dL (8.5-10.1); Creatinine, Blood 0.75 mg/dL (0.40-1.00); Potassium, Blood 3.2 mmol/L (3.5-5.5)
[2025-01-15 07:56] VITALS: BP 164/78
[2025-01-15] MEDS ORDERED: Potassium Chloride 20 MEQ TabCR PO ONE (09:30)
[2025-01-15 11:21] VITALS: BP 116/78
--- NOTE | 2025-01-15 17:52 | NUR ---
PT HAD A HOME O2 EVALUATION DONE TODAY SEE NOTES FOR DETIALS. PT HAD HOME O2 AT BEDSIDE FOR POSSIBLE D/C TOMORROW.
[2025-01-15 19:29] VITALS: BP 132/75
[2025-01-15 23:10] VITALS: BP 161/88
[2025-01-16 03:41] VITALS: BP 162/97
[2025-01-16 07:08] VITALS: BP 148/93
[2025-01-16] MEDS ORDERED: TORSE20 PO (14:27)
--- NOTE | 2025-01-16 16:53 | NUR ---
DISCHARGE: PT D/C @1340 VIA WHEELCHAIR WITH . PORTABLE OXYGEN DELIVERED BY [facility] YESTERDAY AND SENT WITH PT ON 3L. IV REMOVED BY THIS RN W/O COMPLICATIONS. TELE SENT BACK. MEDICATIONS FAXED TO [facility]. NO QUESTIONS AT TIME OF D/C.
== END 2025-01-16 16:02 | disposition home or self-care (01) | DRG 871 ==
LOC: ER 09:19 → PCU 11:52 → MEDS 11:52 → PCU 14:45 → MEDS 01-13 15:28
PROVIDERS: Emergency Medicine; ADMIT Family Medicine
PROC: 3E03329 Introduction of Other Anti-infective into Peripheral Vein, Percutaneous Approach (ICD-10-PCS; 2025-01-09)
PROC: 5A09357 Assistance with Respiratory Ventilation, Less than 24 Consecutive Hours, Continuous Positive Airway Pressure (ICD-10-PCS; principal; 2025-01-10)
PROC: 4A033R1 Measurement of Arterial Saturation, Peripheral, Percutaneous Approach (ICD-10-PCS; 2025-01-10)
DX: A41.9 Sepsis, unspecified organism (principal); I21.A1 Myocardial infarction type 2; J18.9 Pneumonia, unspecified organism; J69.0 Pneumonitis due to inhalation of food and vomit; J96.21 Acute and chronic respiratory failure with hypoxia; J96.22 Acute and chronic respiratory failure with hypercapnia; I50.33 Acute on chronic diastolic (congestive) heart failure; G93.49 Other encephalopathy; E87.1 Hypo-osmolality and hyponatremia; Z66 Do not resuscitate; I42.1 Obstructive hypertrophic cardiomyopathy; Z68.42 Body mass index [BMI] 45.0-49.9, adult; R65.20 Severe sepsis without septic shock; I27.20 Pulmonary hypertension, unspecified; E66.813 Obesity, class 3; G47.33 Obstructive sleep apnea (adult) (pediatric); I34.0 Nonrheumatic mitral (valve) insufficiency; F32.9 Major depressive disorder, single episode, unspecified; E78.5 Hyperlipidemia, unspecified; K21.9 Gastro-esophageal reflux disease without esophagitis; I25.10 Atherosclerotic heart disease of native coronary artery without angina pectoris; I11.0 Hypertensive heart disease with heart failure; Z88.8 Allergy status to other drugs, medicaments and biological substances; Z88.7 Allergy status to serum and vaccine; Z79.82 Long term (current) use of aspirin; Z87.891 Personal history of nicotine dependence
CPT/HCPCS: 0241U; 36415; 36600; 71046; 71260; 80048; 80053; 80069; 82803; 83605; 83880; 84145; 84484; 85025; 85520; 85610; 85730; 87040; 87070; 87205; 93005; 93010; 93306; 94640; 94660; 94664; 94760; 94761; 94762; 96365; 96375; 99285-25; A9270; J0295; J0456; J0696; J1644; J1650; J1940; J7050; Q9967

== ENCOUNTER → 2025-01-09 | Outpatient (CLI) | payer OTHER ==
[2025-01-09 09:05] LABS: BASOPHILS ABSOLUTE AUTO 0.05 K/mm3 (0.00-0.23); BASOPHILS PERCENT AUTO 0 % (0-2); EOSINOPHILS PERCENT AUTO 2 % (0-6); Hematocrit 44.8 % (33.0-51.0); Hemoglobin 14.2 g/dL (11.5-16.0); IMMATURE GRAN ABSOLUTE AUTO 0.07 K/mm3 (0.00-0.10); IMMATURE GRAN PERCENT AUTO 1 % (0-1); LYMPHOCYTES ABSOLUTE AUTO 1.48 K/mm3 (0.84-5.20); LYMPHOCYTES PERCENT AUTO 12 % (21-46); MONOCYTES PERCENT AUTO 15 % (4-13); Mean Corpuscular HGB 28.8 pg (26.0-34.0); Mean Corpuscular HGB Conc 31.7 g/dL (31.5-36.5); Mean Corpuscular Volume 91 fL (80-100); Mean Platelet Volume 10.1 fL (9.1-12.4); NEUTROPHILS PERCENT AUTO 70 % (41-73); NRBC ABSOLUTE 0.05 K/mm3 (0.00-0.02); NRBC Auto 0.4 /100 WBC (0.0-0.2); Platelet Count 227 K/mm3 (150-400); RDW Coefficient Variation 13.9 % (11.7-14.2); RDW Standard Deviation 46.3 fL (35.1-46.3); Red Blood Cell Count 4.93 M/mm3 (3.80-5.20)
[2025-01-09 09:19] LABS: Albumin, Blood 3.2 g/dL (3.4-5.0); Albumin/Globulin Ratio 0.7 (0.8-1.8); Bilirubin, Total 0.7 mg/dL (0.1-1.0); Bun/Creatinine Ratio 16.8 (12.0-20.0); Calcium, Blood 9.7 mg/dL (8.5-10.1); Creatinine, Blood 0.95 mg/dL (0.40-1.00); Globulin, Blood 4.3 g/dL (2.2-4.0); Potassium, Blood 4.3 mmol/L (3.5-5.5); Total Protein, Blood 7.5 g/dL (6.4-8.2)
== END ==
LOC: LAB 08:59 → LAB SHORT 08:59
PROVIDERS: Emergency Medicine
DX: I50.9 Heart failure, unspecified (principal)
CPT/HCPCS: 80053; 83880; 84484; 85025